=== PATIENT | male | born 1985 | race African-American/Black ===

== ENCOUNTER 2025-04-18 11:19 | Emergency (ER) | payer MEDICAID ==
[~2025-04-18] VITALS: Ht 190.5 cm; Wt 79.0 kg
[2025-04-18 11:29] VITALS: TEMP 37.1; O2SAT 99
[2025-04-18] MEDS ORDERED: CEPH500C2 MT (12:37)
[2025-04-18] MEDS ORDERED: BO1 TP (12:37)
[2025-04-18 12:51] VITALS: BP 125/82; PULSE 60; RESP 18; O2SAT 100
== END 2025-04-18 13:08 | disposition home or self-care (01) ==
LOC: ER 11:19
DX: L02.01 Cutaneous abscess of face (principal); Z90.49 Acquired absence of other specified parts of digestive tract
CPT/HCPCS: 99283